=== PATIENT | female | born 1980 | race American Indian/Alaskan Native ===

== ENCOUNTER 2017-06-29 14:22 | Emergency (ER) | payer MEDICARE ==
[2017-06-29 14:46] VITALS: BP 125/81
--- NOTE | 2017-06-29 15:29 | XRay Report ---
Chest 2 views: History: Shortness of breath. Findings: Normal cardiomediastinal silhouette. Trachea is midline. No consolidation, pneumothorax or pleural effusion. Impression No acute cardiopulmonary findings.
[2017-06-29 15:41] LABS: Basophils % (Auto) 1.9 % (0.0-1.8); Mean Corpuscular HGB Conc 30 % (30-34); Platelet Count 266 K/mm3 (140-440); Red Blood Count 5.71 M/mm3 (3.65-5.03); White Blood Count 7.4 K/mm3 (4.5-11.0)
[2017-06-29 15:49] LABS: Hemoglobin 9.1 gm/dl (10.1-14.3)
[2017-06-29 15:50] LABS: Hematocrit 30.3 % (30.3-42.9); Mean Corpuscular Hemoglobin 16 pg (28-32); Mean Corpuscular Volume 53 fl (79-97)
[2017-06-29 15:56] LABS: Anion Gap 19 mmol/L; BUN/Creatinine Ratio 12; Blood Urea Nitrogen 6 mg/dL (7-17); Calcium 9.1 mg/dL (8.4-10.2); Carbon Dioxide 24 mmol/L (22-30); Chloride 102.3 mmol/L (98-107); Glucose 89 mg/dL (65-100); Potassium 3.9 mmol/L (3.6-5.0); Sodium 141 mmol/L (137-145)
== END 2017-06-29 20:07 | disposition left against medical advice (07) ==
LOC: ED 14:22
DX: R05 Cough (principal); M54.9 Dorsalgia, unspecified; R07.9 Chest pain, unspecified; Z53.21 Procedure and treatment not carried out due to patient leaving prior to being seen by health care provider
CPT/HCPCS: 36415; 71020; 80048; 84703; 85025

== ENCOUNTER 2021-04-15 12:02 | Emergency (ER) | payer MEDICARE ==
[2021-04-15] MEDS ORDERED: ONDANSETRON 4 MG ODT TAB PO ONE (15:17)
--- NOTE | 2021-04-15 15:27 | Event Note ---
ED Screening Note Date of service: 04/15/21 Time: 15:26 ED Screening Note: c/o SOB, cough, and loss of taste and smell x 1 week Hypoxic with ambulation at 81% on room air This initial assessment/diagnostic orders/clinical plan/treatment(s) is/are subject to change based on patients health status, clinical progression and re- assessment by fellow clinical providers in the ED. Further treatment and workup at subsequent clinical providers discretion. Patient/guardian urged not to elope from the ED as their condition may be serious if not clinically assessed and managed. Initial orders include:
[2021-04-15] MEDS ORDERED: dexAMETHasone 20 MG/5 ML VIAL IV ONE (15:40)
[2021-04-15 16:43] LABS: Alanine Aminotransferase 21 units/L (7-56); Albumin 4.3 g/dL (3.9-5); BUN/Creatinine Ratio 12; Blood Urea Nitrogen 7 mg/dL (7-17); Calcium 9.6 mg/dL (8.4-10.2); Hemolysis Index 10
[2021-04-15 16:50] LABS: Red Blood Count 5.73 M/mm3 (3.65-5.03)
[2021-04-15 16:51] LABS: Basophils % (Auto) 0.5 % (0.0-1.8); Eosinophils % (Auto) 0.1 % (0.0-4.3); Lymphocytes % (Auto) 11.9 % (13.4-35.0); Mean Corpuscular HGB Conc 37 % (30-34); Mean Corpuscular Volume 81 fl (79-97); Monocytes # (Auto) 0.5 K/mm3 (0.0-0.8); Monocytes % (Auto) 5.6 % (0.0-7.3); Platelet Count 170 K/mm3 (140-440); Red Cell Distribution Width 14.9 % (13.2-15.2)
[2021-04-15 17:05] LABS: Hematocrit 46.5 % (30.3-42.9)
--- NOTE | 2021-04-15 17:14 | Emergency Department Report ---
ED Shortness of Breath HPI - General Chief Complaint: Dyspnea/Respdistress Stated Complaint: SOB Time Seen by Provider: 04/15/21 15:24 Source: patient Mode of arrival: Ambulatory Limitations: No Limitations - History of Present Illness Initial Comments: 41-year-old female, history of HIV, currently on antivirals, reports viral load is undetectable, presents to ED with Covid-like symptoms. Patient reports 1 week history of body aches, cough, shortness of breath, vomiting and diarrhea. Patient is unvaccinated against COVID-19. Patient has not been tested for COVID-19. MD Complaint: shortness of breath -: week(s) (1) Severity: moderate Consistency: intermittent Improves With: rest Worsens With: exertion Context: recent URI Associated Symptoms: cough - Related Data Home Oxygen Therapy: No Home Medications Medication Instructions Recorded Confirmed Last Taken Efavirenz/Emtricit/Tenofovr Df 1 tab PO DAILY 12/05/14 12/05/14 12/05/14 [Atripla Tablet] Previous Rx's Medication Instructions Recorded Last Taken Type Albuterol Sulfate [Ventolin HFA] 2 puff IH Q4H PRN #1 hfa.aer.ad 12/06/14 Unknown Rx Azithromycin [Zithromax Z-ROBBY] 250 mg PO DAILY #6 tablet 12/06/14 Unknown Rx HYDROcodone/APAP 10-325 [Proctor 1 each PO Q4H PRN #20 tablet 12/06/14 Unknown Rx 10-325 mg TAB] Benzonatate [Tessalon Perles] 100 mg PO Q8HR PRN #20 capsule 04/15/21 Unknown Rx Ondansetron [Zofran Odt] 4 mg PO Q8HR PRN #20 tab.rapdis 04/15/21 Unknown Rx Allergies Allergy/AdvReac Type Severity Reaction Status Date / Time cephalexin monohydrate Allergy Hives Verified 04/15/21 14:46 [From Keflex] Penicillins Allergy Hives Verified 04/15/21 14:46 ED Review of Systems ROS: Stated complaint: SOB Other details as noted in HPI Comment: All other systems reviewed and negative Respiratory: cough, shortness of breath Gastrointestinal: nausea, vomiting, diarrhea Musculoskeletal: myalgia ED Past Medical Hx - Past Medical History Hx HIV: Yes (CD4 count>600,V.L. undetectable,no H/O O.I.'s) Additional medical history: Miscarriage 12/03/2014 - Surgical History Past Surgical History?: No - Social History Smoking Status: Never Smoker Substance Use Type: None - Medications Home Medications: Home Medications Medication Instructions Recorded Confirmed Last Taken Type Efavirenz/Emtricit/Tenofovr Df 1 tab PO DAILY 12/05/14 12/05/14 12/05/14 History [Atripla Tablet] Albuterol Sulfate [Ventolin HFA] 2 puff IH Q4H PRN #1 hfa.aer.ad 12/06/14 Unknown Rx Azithromycin [Zithromax Z-ROBBY] 250 mg PO DAILY #6 tablet 12/06/14 Unknown Rx HYDROcodone/APAP 10-325 [Proctor 1 each PO Q4H PRN #20 tablet 12/06/14 Unknown Rx 10-325 mg TAB] Benzonatate [Tessalon Perles] 100 mg PO Q8HR PRN #20 capsule 04/15/21 Unknown Rx Ondansetron [Zofran Odt] 4 mg PO Q8HR PRN #20 tab.rapdis 04/15/21 Unknown Rx ED Physical Exam - General Limitations: No Limitations General appearance: alert, in no apparent distress - Head Head exam: Present: atraumatic, normocephalic - Eye Eye exam: Present: normal appearance, EOMI - ENT ENT exam: Present: mucous membranes moist - Neck Neck exam: Present: normal inspection - Respiratory Respiratory exam: Present: normal lung sounds bilaterally. Absent: respiratory distress - Cardiovascular Cardiovascular Exam: Present: regular rate, normal rhythm - GI/Abdominal GI/Abdominal exam: Present: soft. Absent: distended, tenderness - Extremities Exam Extremities exam: Present: normal inspection - Neurological Exam Neurological exam: Present: alert, oriented X3 - Psychiatric Psychiatric exam: Present: normal affect, normal mood - Skin Skin exam: Present: warm, dry, intact, normal color ED Course Vital Signs 04/15/21 04/15/21 14:48 18:03 Temperature 97.9 F Pulse Rate 74 74 Respiratory 18 18 Rate Blood Pressure 115/76 Blood Pressure 116/73 [Left] O2 Sat by Pulse 99 99 Oximetry ED Medical Decision Making - Lab Data Result diagrams: 04/15/21 15:43 04/15/21 15:43 - Radiology Data Radiology results: report reviewed, image reviewed - Medical Decision Making Patient presents to ED with Covid-like symptoms. Chest x-ray is normal. Resting O2 sat is normal. Patient is actually NOT hypoxic with ambulation, as stated in midlevel screening note. Patient is in no respiratory distress. She will be discharged at this time. Patient advised to obtain outpatient COVID-19 testing. Patient follow-up advised, return precautions given. - Differential Diagnosis Pneumonia, viral illness, COVID-19 Critical care attestation.: If time is entered above; I have spent that time in minutes in the direct care of this critically ill patient, excluding procedure time. ED Disposition Clinical Impression: Suspected COVID-19 virus infection, Viral illness Disposition: HOME / SELF CARE / HOMELESS Is pt being admited?: No Condition: Stable Instructions: COVID-19 Frequently Asked Questions Additional Instructions: It is recommended that you obtain outpatient COVID-19 testing. Please quarantine as necessary. You may take Motrin or Tylenol for fever or body aches. You may take [id number] vitamin C, vitamin D, and zinc as directed on the bottle. Please purchase a pulse oximeter so that you can check your oxygen level. Today it is normal. If your oxygen drops below 90% return to the ER. Return to the ER if your condition worsens. Prescriptions: Benzonatate [Tessalon Perles] 100 mg PO Q8HR PRN #20 capsule PRN Reason: Cough Ondansetron [Zofran Odt] 4 mg PO Q8HR PRN #20 tab.rapdis PRN Reason: Vomiting Referrals: PRIMARY CARE, [Primary Care Provider] - 3-5 Days Time of Disposition: 17:58
--- NOTE | 2021-04-15 17:22 | XRay Report ---
CHEST 1 VIEW 04/15/2021 4:14 PM INDICATION / CLINICAL INFORMATION: pui, hypoxia, SOB. COMPARISON: 2 views of the chest dated 06/29/2017 FINDINGS: SUPPORT DEVICES: None. HEART / MEDIASTINUM: No significant abnormality. LUNGS / PLEURA: Mild scarring/atelectasis is noted along the lower left lung. The lungs are otherwise clear. No significant pleural effusion. No pneumothorax. ADDITIONAL FINDINGS: No significant additional findings. IMPRESSION: 1. No acute abnormality of the chest. 2. Additional findings as above. Signer Name: Santi Wilkinson MD Signed: 04/15/2021 5:18 PM Workstation Name: [id number]
[2021-04-15 18:04] VITALS: BP 116/73
== END 2021-04-15 18:10 | disposition home or self-care (01) ==
LOC: ED 12:02
DX: B34.9 Viral infection, unspecified (principal); Z20.822 Contact with and (suspected) exposure to COVID-19; Z88.0 Allergy status to penicillin; Z88.8 Allergy status to other drugs, medicaments and biological substances
CPT/HCPCS: 36415; 71045; 80053; 82728; 83615; 84145; 84703; 85025; 85379; 86140; 96374; 99284; J1100; Q0162